=== PATIENT | male | born 1955 | race Caucasian/White ===

== ENCOUNTER 2017-05-26 09:46 | Inpatient (IN) | payer OTHER, MEDICARE ==
[~2017-05-26] VITALS: Ht 182.9 cm; Wt 94.5 kg
[2017-05-26] VITALS (7 sets, daily range): BP systolic 111–150; BP diastolic 66–94; PULSE 69–86; RESP 16–25; TEMP 97.5; O2SAT 94–98
[~2017-05-26 09:46] MED LIST: ASPI81 PO; CARV12.5 PO; CLOP75TA PO; ISOS30 PO; LISI-363 PO; PRAV80 PO; ST J300C PO
--- NOTE | 2017-05-26 10:14 | PD ---
HPI Chief Complaint: Chest Pain Time Seen by Provider: 10:00 Travel History International Travel<30 days: No Contact w/Intl Traveler<30days: No Traveled to known affect area: No History of Present Illness HPI 61-year-old male history coronary artery disease, hyperlipidemia, strong family cardiac history, presents here with complaints of chest pain intermittent times one week. Patient reports that comes and goes. He reports does a heavy pressure like. He states it is a 6 out of 10 when it's worse. It lasts roughly 5 minutes. He states he's taken 3 nitroglycerin that have resolved the pain. He was seen by Dr. Baker today and sent over here for admission for a cardiac catheter. [facility] Past Medical History Arthritis: Yes (Fingers) Asthma: No Blood Disorders: No Anxiety: Yes Depression: Yes Heart Rhythm Problems: No Cancer: No Cardiac Catheterization: Yes Cardiovascular Problems: Yes (htn, mi, stents) High Cholesterol: Yes Chest Pain: Yes Congestive Heart Failure: Yes (2009) COPD: No Cerebrovascular Accident: Yes Diabetes: Yes (metformin) Endocrine: No Gastrointestinal Disorders: No GERD: No Genitourinary: No Headaches: Yes (Rt side of head constantly) Hiatal Hernia: No Hypertension: Yes Immune Disorder: No Musculoskeletal: Yes Neurologic: No Psychiatric: Yes Reproductive: No Respiratory: Yes Migraines: No Myocardial Infarction: Yes (X 2) Seizures: No Sleep Apnea: No Ulcer: No Past Surgical History Abdominal Surgery: No Body Medical Devices: STENTS TO CORONARY ART. Cardiac Surgery: Yes ( Stent placement) Ear Surgery: No Endocrine Surgery: No Eye Surgery: No Genitourinary Surgery: No Gynecologic Surgery: No Oral Surgery: No Thoracic Surgery: No Other Surgery: Yes Social History Alcohol Use: No Tobacco Use: No Substance Use: No Allergies-Medications (Allergen,Severity, Reaction): Coded Allergies: No Known Allergies (Unverified , 05/26/17) Reported Meds & Prescriptions Reported Meds & Active Scripts Active Reported Gabapentin 100 Mg Cap 200 Mg PO DAILY Invokana (Canagliflozin) 100 Mg Tab 100 Mg PO DAILY Take before 1st meal of day. Metformin (Metformin HCl) 1,000 Mg Tab 1,000 Mg PO DAILY With a meal Pravastatin 80 Mg Tab 80 Mg PO DAILY Coreg (Carvedilol) 12.5 Mg Tab 12.5 Mg PO BID Aspirin 81 Mg Chew 81 Mg CHEW DAILY Review of Systems Except as stated in HPI: all other systems reviewed are Neg General / Constitutional: No: Fever, Chills HENT: No: Headaches, Neck Pain Cardiovascular: Positive: Chest Pain or Discomfort, No: Palpitations, Irregular Rhythm Respiratory: Positive: Shortness of Breath, No: Cough Gastrointestinal: Positive: Nausea, No: Vomiting, Abdominal Pain Musculoskeletal: No: Weakness, Pain Neurologic: No: Weakness, Headache Physical Exam Narrative GENERAL: Well-developed well-nourished male in no acute respiratory distress. SKIN: Focused skin assessment warm/dry. HEAD: Atraumatic. Normocephalic. EYES: No scleral icterus. No injection or drainage. ENT: No nasal bleeding or discharge. Mucous membranes pink and moist. NECK: Trachea midline. No JVD. Supple. CARDIOVASCULAR: Regular rate and rhythm. No murmur appreciated. RESPIRATORY: No accessory muscle use. Clear to auscultation. Breath sounds equal bilaterally. GASTROINTESTINAL: Abdomen soft, non-tender, nondistended. Hepatic and splenic margins not palpable. MUSCULOSKELETAL: No obvious deformities. No clubbing. No cyanosis. No edema. NEUROLOGICAL: Awake and alert. No obvious cranial nerve deficits. Motor grossly within normal limits. Normal speech. PSYCHIATRIC: Appropriate mood and affect; insight and judgment normal. Data Data Last Documented VS Vital Signs Date Time Temp Pulse Resp B/P Pulse Ox O2 Delivery O2 Flow Rate FiO2 05/26/17 10:16 70 23 118/71 125/71 05/26/17 10:08 97 Room Air 05/26/17 09:49 97.5 Orders Electrocardiogram (05/26/17 10:03) Basic Metabolic Panel (Bmp) (05/26/17 10:03) Ckmb (Isoenzyme) Profile (05/26/17 10:03) Complete Blood Count With Diff (05/26/17 10:03) Magnesium (Mg) (05/26/17 10:03) Prothrombin Time / Inr (Pt) (05/26/17 10:03) Act Partial Throm Time (Ptt) (05/26/17 10:03) Troponin I (05/26/17 10:03) Chest, Single Ap (05/26/17 10:03) Ecg Monitoring (05/26/17 10:03) Bilateral Bp Monitoring (05/26/17 10:03) Iv Access Insert/Monitor (05/26/17 10:03) Oximetry (05/26/17 10:03) Oxygen Administration (05/26/17 10:03) Sodium Chloride 0.9% Flush (Ns Flush) (05/26/17 10:15) Admit To Inpatient (05/26/17 ) Vital Signs (Adult) Q4H (05/26/17 13:20) Activity Oob With Assistance (05/26/17 13:20) Tie Bucker / Telemetry .CONTINUOUS (05/26/17 13:20) Diet Npo (05/26/17 Lunch) Sodium Chlor 0.9% 1000 Ml Inj (Ns 1000 M (05/26/17 13:20) Sodium Chloride 0.9% Flush (Ns Flush) (05/26/17 13:30) Sodium Chloride 0.9% Flush (Ns Flush) (05/26/17 21:00) Ondansetron Inj (Zofran Inj) (05/26/17 13:30) Basic Metabolic Panel (Bmp) (05/27/17 06:00) Complete Blood Count With Diff (05/27/17 06:00) Troponin I (05/26/17 13:20) Troponin I (05/26/17 19:20) Electrocardiogram (05/26/17 13:20) Electrocardiogram (05/26/17 19:20) Enoxaparin Inj (Lovenox Inj) (05/26/17 13:30) Morphine Inj (Morphine Inj) (05/26/17 13:30) Morphine Inj (Morphine Inj) (05/26/17 13:30) Naloxone Inj (Narcan Inj) (05/26/17 13:30) Docusate Sodium-Senna (Grecia-Colace) (05/26/17 21:00) Magnesium Hydroxide Liq (Milk Of Magnesi (05/26/17 13:30) Sennosides (Senokot) (05/26/17 13:30) Bisacodyl Supp (Dulcolax Supp) (05/26/17 13:30) Lactulose Liq (Lactulose Liq) (05/26/17 13:30) Inpatient Certification (05/26/17 ) Labs Laboratory Tests Test 05/26/17 10:25 White Blood Count 10.2 TH/MM3 Red Blood Count 5.26 MIL/MM3 Hemoglobin 16.1 GM/DL Hematocrit 45.9 % Mean Corpuscular Volume 87.2 FL Mean Corpuscular Hemoglobin 30.6 PG Mean Corpuscular Hemoglobin 35.0 % Concent Red Cell Distribution Width 12.6 % Platelet Count 247 TH/MM3 Mean Platelet Volume 9.2 FL Neutrophils (%) (Auto) 64.0 % Lymphocytes (%) (Auto) 26.9 % Monocytes (%) (Auto) 6.7 % Eosinophils (%) (Auto) 1.4 % Basophils (%) (Auto) 1.0 % Neutrophils # (Auto) 6.5 TH/MM3 Lymphocytes # (Auto) 2.8 TH/MM3 Monocytes # (Auto) 0.7 TH/MM3 Eosinophils # (Auto) 0.1 TH/MM3 Basophils # (Auto) 0.1 TH/MM3 CBC Comment DIFF FINAL Differential Comment Prothrombin Time 10.7 SEC Prothromb Time International 1.0 RATIO Ratio Activated Partial 24.8 SEC Thromboplast Time Sodium Level 139 MEQ/L Potassium Level 4.2 MEQ/L Chloride Level 104 MEQ/L Carbon Dioxide Level 28.1 MEQ/L Anion Gap 7 MEQ/L Blood Urea Nitrogen 14 MG/DL Creatinine 0.91 MG/DL Estimat Glomerular Filtration 85 ML/MIN Rate Random Glucose 115 MG/DL Calcium Level 9.2 MG/DL Magnesium Level 2.3 MG/DL Total Creatine Kinase 54 U/L Troponin I 0.02 NG/ML MDM Medical Decision Making Medical Screen Exam Complete: Yes Emergency Medical Condition: Yes Differential Diagnosis Unstable angina versus musculoskeletal versus pneumonia Narrative Course This is a 61-year-old male presents 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 The patient presents with what sounds like a very good unstable angina history. The patient's had a week of intermittent chest pain relieved with nitroglycerin. The patient has been given a full aspirin and has had nitroglycerin paste placed here in the emergency department. He'll be admitted to the hospitalist service with consults to Dr. Baker. He'll be nothing by mouth until we find out when [facility] will [facility]. Diagnosis Primary Impression: Unstable angina Additional Impressions: Hypertension Hyperlipidemia Admitting Information Admitting Physician Requests: Admit Zachary Lloyd MD May 26, 2017 10:14
[2017-05-26] MEDS ORDERED: SODIUM CHLORIDE 0.9% FLUSH 10 ML FLUSH IVF PRN (10:15)
[2017-05-26] MEDS ORDERED: CANA100T PO (10:24)
[2017-05-26] MEDS ORDERED: CARV12.5 PO (10:24)
[2017-05-26] MEDS ORDERED: ASPI81CH CHEW (10:24)
[2017-05-26] MEDS ORDERED: GABA100C4 PO (10:24)
[2017-05-26] MEDS ORDERED: PRAV80TA2 PO (10:24)
[2017-05-26] MEDS ORDERED: METF1000 PO (10:24)
[2017-05-26 10:43] LABS: AUTOMATED NEUTROPHIL # 6.5 TH/MM3 (1.8-7.7); BASOPHIL # 0.1 TH/MM3 (0-0.2); EOSINOPHIL # 0.1 TH/MM3 (0-0.4); EOSINOPHIL % 1.4 % (0.0-4.0); HEMATOCRIT 45.9 % (39.0-51.0); HEMO FLAGS DIFF FINAL; LYMPH % 26.9 % (9.0-44.0); LYMPHOCYTE # 2.8 TH/MM3 (1.0-4.8); MEAN CELL VOLUME 87.2 FL (80.0-100.0); MEAN CORPUSCULAR HEMOGLOBIN 30.6 PG (27.0-34.0); MONO % 6.7 % (0.0-8.0); PLATELET COUNT 247 TH/MM3 (150-450); RED BLOOD COUNT 5.26 MIL/MM3 (4.50-5.90); RED CELL DISTRIBUTION WIDTH 12.6 % (11.6-17.2); WHITE BLOOD COUNT 10.2 TH/MM3 (4.0-11.0)
[2017-05-26 10:51] LABS: PROTHROMBIN TIME - PATIENT 10.7 SEC (9.8-11.6)
[2017-05-26 10:55] LABS: APTT (PATIENT) 24.8 SEC (24.3-30.1)
[2017-05-26 11:06] LABS: BICARBONATE 28.1 MEQ/L (21.0-32.0); MAGNESIUM 2.3 MG/DL (1.5-2.5); POTASSIUM 4.2 MEQ/L (3.5-5.1)
--- NOTE | 2017-05-26 11:32 | RADRPT ---
EXAM DATE/TIME: 05/26/2017 10:10 [facility] COMPARISON: CHEST SINGLE AP, December 10, 2013, 14:31. INDICATIONS : Chest pain for one week. MEDICAL HISTORY : Hypertension. Diabetes mellitus type II. SURGICAL HISTORY : None. ENCOUNTER: Initial ACUITY: 1 week PAIN SCORE: 8/10 LOCATION: Bilateral chest FINDINGS: A single view of the chest demonstrates the lungs to be symmetrically aerated without evidence of mas s, infiltrate or effusion. The cardiomediastinal contours are unremarkable. Osseous structures are intact. CONCLUSION: No acute disease. Sidney Morales MD FACR on May 26, 2017 at 11:30 Board Certified Radiologist. This report was verified electronically.
[2017-05-26] MEDS ORDERED: SODIUM CHLORIDE 0.9% FLUSH 10 ML FLUSH IV FLUSH PRN (13:30)
[2017-05-26] MEDS ORDERED: ASPIRIN 81 MG CHEW TAB CHEW ONE (13:30)
[2017-05-26] MEDS ORDERED: MAGNESIUM HYDROXIDE SUSP 30 ML CUP PO PRN (13:30)
[2017-05-26] MEDS ORDERED: SENNOSIDES 8.6 MG TAB PO PRN (13:30)
[2017-05-26] MEDS ORDERED: LACTULOSE SYRUP 20 GM/30 ML CUP PO PRN (13:30)
[2017-05-26] MEDS ORDERED: NALOXONE HCL 0.4 MG/ML AMP IV PRN (13:30)
[2017-05-26] MEDS ORDERED: BISACODYL 10 MG SUPP RECTAL PRN (13:30)
[2017-05-26] MEDS ORDERED: MORPHINE SULFATE 4 MG/ML INJ IV PRN ×2 (13:30)
[2017-05-26] MEDS ORDERED: ONDANSETRON HCL 4 MG/2 ML VIAL IVP PRN (13:30)
[2017-05-26] MEDS ORDERED: NITROGLYCERIN 2% OINT 1 GM PACKET TOPICAL ONE (13:30)
[2017-05-26] MEDS: SODIUM CHLOR 0.9% 1000 ML INJ 1,000 ML IV SCH ×2 (13:48→23:55)
[2017-05-26] MEDS ORDERED: ENOXAPARIN SODIUM 40 MG/0.4 ML SYRINGE SQ SCH (14:00)
[2017-05-26] MEDS: INSULIN ASPART SUPPLEMENTAL SCALE SQ SCH ×2 (16:00→21:00)
[2017-05-26] MEDS ORDERED: DEXTROSE 50% IN WATER 50 ML VIAL(D50) IV PRN (16:00)
[2017-05-26] MEDS ORDERED: GLUCAGON 1 MG/ML VIAL OTHER PRN (16:00)
--- NOTE | 2017-05-26 16:00 | HHI.HP ---
[facility] Kevin Pina Admission Diagnosis unstable angina, hypertension, hyperlipidemia Diagnoses: Travel History International Travel<30 Days: No Contact w/Intl Traveler <30 Da: No Traveled to Known Affected Are: No History of Present Illness Mr. Negrete is a 61-year-old male. She has a history of coronary artery disease with 2 myocardial infarctions and 3-4 stents in his past. For the past 2 weeks he's been having unstable angina with an increase in frequency and intensity. Episodes are brought on by activity. At his baseline he has angina intermittently but again the frequency and intensity have increased lately. He' s been treating this at home and seeking outpatient medical advice. He was unable to visit with his primary care physician last week so he saw Dr. Baker today and was recommended to come to the hospital. Plan is for cardiac catheter. No active chest pain when seen, resting in the ER. His first troponin is within normal limits. Review of Systems Constitutional: DENIES: Diaphoretic episodes, Fatigue, Fever, Weight gain, Weight loss, Chills Eyes: DENIES: Blurred vision, Diplopia Ears, nose, mouth, throat: DENIES: Tinnitus, Hearing loss, Vertigo Respiratory: DENIES: Cough, Wheezing, Sputum production Cardiovascular: COMPLAINS OF: Chest pain, DENIES: Palpitations, Syncope Gastrointestinal: DENIES: Abdominal pain, Black stools, Bloody stools, Constipation Musculoskeletal: DENIES: Joint pain, Muscle aches, Stiffness Integumentary: DENIES: Abnormal pigmentation Hematologic/lymphatic: DENIES: Bruising Immunologic/allergic: DENIES: Eczema Neurologic: DENIES: Abnormal gait Psychiatric: DENIES: Anxiety, Confusion Past Family Social History Past Medical History [place] Coronary artery disease Hyperlipidemia Gen. anxiety disorder Depression Hypertension History of CVA Diabetes mellitus type 2 Headaches Past Surgical History History of heart catheter Reported Medications Reported Meds & Active Scripts Active Reported Gabapentin 100 Mg Cap 200 Mg PO DAILY Invokana (Canagliflozin) 100 Mg Tab 100 Mg PO DAILY Take before 1st meal of day. Metformin (Metformin HCl) 1,000 Mg Tab 1,000 Mg PO DAILY With a meal Pravastatin 80 Mg Tab 80 Mg PO DAILY Coreg (Carvedilol) 12.5 Mg Tab 12.5 Mg PO BID Aspirin 81 Mg Chew 81 Mg CHEW DAILY Allergies: Coded Allergies: No Known Allergies (Unverified , 05/26/17) Active Ordered Medications Administered Medications Medications (Trade) Dose Ordered Sig/Sheryl Route PRN Reason Start Time Stop Time Status Last Admin Dose Admin Sodium Chloride (NS 1000 ml Inj) 1,000 ml @ 100 mls/hr Q10H IV 05/26/17 14:00 05/26/17 13:48 Enoxaparin Sodium (Lovenox Inj) 40 mg Q24H SQ 05/26/17 14:00 05/26/17 14:53 Family History His father, grandfather, uncle had coronary artery disease. His father of [place]. His mother of cancer. Social History No alcohol abuse Known drug abuse He was a smoker and quit in 2002. Physical Exam Vital Signs Vital Signs Date Time Temp Pulse Resp B/P Pulse Ox O2 Delivery O2 Flow Rate FiO2 05/26/17 13:48 69 25 118/69 97 Room Air 05/26/17 10:16 70 23 118/71 125/71 05/26/17 10:08 71 23 97 Room Air 05/26/17 10:07 72 23 118/71 97 Room Air 05/26/17 10:07 97 Room Air 05/26/17 09:49 97.5 72 18 145/78 97 Room Air Physical Exam GENERAL: NAD, A&Ox3 HEAD: Normocephalic. NECK: Supple, trachea midline. No lymphadenopathy. EYES: No scleral icterus. No injection or drainage. CARDIOVASCULAR: Regular rate and rhythm without murmurs, gallops, or rubs. RESPIRATORY: Breath sounds equal bilaterally. No accessory muscle use. GASTROINTESTINAL: Abdomen soft, non-tender, nondistended. MUSCULOSKELETAL: No cyanosis, or edema. SKIN: Warm and dry. NEURO: No focal neurological deficitis. Laboratory Laboratory Tests Test 05/26/17 10:25 White Blood Count 10.2 Red Blood Count 5.26 Hemoglobin 16.1 Hematocrit 45.9 Mean Corpuscular Volume 87.2 Mean Corpuscular Hemoglobin 30.6 Mean Corpuscular Hemoglobin 35.0 Concent Red Cell Distribution Width 12.6 Platelet Count 247 Mean Platelet Volume 9.2 Neutrophils (%) (Auto) 64.0 Lymphocytes (%) (Auto) 26.9 Monocytes (%) (Auto) 6.7 Eosinophils (%) (Auto) 1.4 Basophils (%) (Auto) 1.0 Neutrophils # (Auto) 6.5 Lymphocytes # (Auto) 2.8 Monocytes # (Auto) 0.7 Eosinophils # (Auto) 0.1 Basophils # (Auto) 0.1 CBC Comment DIFF FINAL Differential Comment Prothrombin Time 10.7 Prothromb Time International 1.0 Ratio Activated Partial 24.8 Thromboplast Time Sodium Level 139 Potassium Level 4.2 Chloride Level 104 Carbon Dioxide Level 28.1 Anion Gap 7 Blood Urea Nitrogen 14 Creatinine 0.91 Estimat Glomerular Filtration 85 Rate Random Glucose 115 Calcium Level 9.2 Magnesium Level 2.3 Total Creatine Kinase 54 Troponin I 0.02 Result Diagram: 05/26/17 1025 05/26/17 1025 Imaging Last Impressions Chest X-Ray 05/26/17 1003 Signed Impressions: Service Date/Time: Friday, May 26, 2017 10:10 - CONCLUSION: No acute disease. Sidney Morales MD FACR Assessment and Plan Problem List: (1) Hypertension ICD Code: I10 Status: Acute (2) Hyperlipidemia ICD Code: E78.5 Status: Acute (3) Unstable angina ICD Code: I20.0 Status: Acute (4) Disorder of coronary artery ICD Code: 447.9 Status: Chronic (5) Benign hypertension ICD Code: 401.1 Status: Chronic (6) Chest pain ICD Code: R07.9 Status: Acute Assessment and Plan Assessment and plan 61-year-old male with known coronary artery disease admitted with unstable angina. Unstable angina Coronary artery disease [place] History of coronary stents Plan for heart catheter this evening Nothing by mouth Cardiology consulted Evaluate for ACS Follow cardiac enzymes Aspirin daily When necessary oxygen When necessary morphine for pain. When necessary nitroglycerin Follow on telemetry Hyperlipidemia Continue statin Fasting lipid profile in a.m. Diabetes mellitus type 2 Follow blood sugars Insulin sliding scale Diabetic diet once off nothing by mouth Gen. anxiety disorder Depression No change to baseline treatments No active anxiety when seen Follow clinically Hypertension Follow blood pressures Continue baseline treatments History of CVA Headaches Follow clinically DVT prophylaxis Lovenox Physician Certification 2 Midnight Certification Type: Admission for Inpatient Services Order for Inpatient Services The services are ordered in accordance with Medicare regulations or non- Medicare payer requirements, as applicable. In the case of services not specified as inpatient-only, they are appropriately provided as inpatient services in accordance with the 2-midnight benchmark. Estimated LOS (days): 2 days is the estimated time the patient will need to remain in the hospital, assuming treatment plan goals are met and no additional complications. Post-Hospital Plan: Home Brandon Potter MD May 26, 2017 16:00
--- NOTE | 2017-05-26 16:38 | EKG ---
Date Performed: 05/26/2017 Time Performed: 10:09:11 PTAGE: 61 years EKG: Sinus rhythm NORMAL ECG PREVIOUS TRACING : 12/10/2013 20.27 Since previous tracing, no significant change noted DOCTOR: Domenico Christopher Interpretating Date/Time 05/26/2017 16:37:59
[2017-05-26] MEDS ORDERED: IOHEXOL 350 MG/ML 50 ML BTL (for Cath Lab) OTHER ONE (17:00)
[2017-05-26] MEDS ORDERED: IOHEXOL 350 MG/ML 100 ML BTL (for Cath Lab) OTHER ONE (17:00)
[2017-05-26] MEDS ORDERED: HEPARIN-NS/PF INJ 500 ML ONE (17:08)
[2017-05-26] MEDS ORDERED: BIVALIRUDIN 250 MG VIAL ONE (17:34)
[2017-05-26] MEDS ORDERED: TICAGRELOR 90 MG TAB PO ONE (18:13)
--- NOTE | 2017-05-26 18:36 | CATHPROC ---
[employer] HIS Report Study Information Study Number Admission Scheduled Start Study Start [id number] May 26 2017 1:23PM 05/26/2017 May 26 2017 4:44PM [place] [facility] Cardiac Catheterization Admit Source Facility Department Emergency department [facility] - Logistics Account Manager Physician and Clinical Staff Initial MD Baker, [facility] Platinumsmith Gilberto Grove,RN Recorder Keven Huber,RT(R) Scrub Jamila Vicente,CIVIL GEOTECHNICAL ENGINEER TECH2 Procedures Performed Procedure Location (Site) Vessel Name Coronary Angiograms LCA Left Coronary Drug Eluting Inflatio CIRC Prox CIRC LV Gram-hand inj. LV LV Ventricle PTCA CIRC Prox CIRC Wire insertion Fem Art (right) Femoral Art Equipment Time Group Home Paraprofessional Description Size Mfg Part Number Used/Scraped WIRE, BALANCE MIDDLEWEIGHT [id number] 17:36 [employer] 190CM Used 190CM ([facility]) *[id number] WIRE, WHISPER W/HYDROCOAT [id number] 17:52 [employer] 190CM Used 190CM *[id number] TRANSDUCER, TRUWAVE [id number] 16:46 NARANJO EARL * Used W/STOCKCOCK *[id number] 18:00 BOSTON SCI[employer] BALLOON, 1.5 8MM EMERGE MR 1.5 8MM Used *[id number] 538-476 *[id number] 538-420 *[id number] 538-422 *[id number] 538-453S *[phone] *[id number] 18:16 DAIG/ST. YASMINE MEDICAL ANGIOSEAL, FR6 VIP FR 6 Used *[id number] 16:46 MEDLINE INDUSTRIES PACK, CCL CUSTOM * Used *[id number] [id number] 16:46 MEDLINE PACER PEN, SKIN DUAL W/ RULER * Used *[id number] STENT, 2.75 14 RESOLUTE [id number] 18:07 MEDTRONIC 2.75 14 Used INTEGRITY RX *[id number] 18:04 [employer] Universe MEDICAL 30 ELIECER INDEFLATOR Used *[id number] 16:46 [employer] MEDICAL SHEATH, FR4.5 PRELUDE 11CM FR 4.5 Used [id number] 17:32 [employer] MEDICAL SHEATH, FR6.5 PRELUDE 11CM FR 6.5 038ACT Used *[id number] 16:46 [employer] MEDICAL WIRE, 3MMJ .035 180CM 180CM Used *[id number] 16:46 NAMIC CONTRAST CONTROLLER, SPIKE * Used *[id number] 16:46 NAMIC MANIFOLD, 4 PORT * Used *[id number] 16:46 NYCOMED OMNIPAQUE, 350 MG, 150ML 150ML [id number] Used [id number] 16:46 Geostellar MEDICAL BLANKET,WARM AIR CCL * Used *[id number] 16:46 Geostellar MEDICAL BLANKET,WARM AIR CCL * Used *[id number] Equipment Model, Serial, Lot Number and Expiration Data Description Model Number Serial Number Lot Number Expiration Date SHEATH, FR6.5 PRELUDE 11CM [id number] 03-19-2020 STENT, 2.75 14 RESOLUTE [id number] 09-13-2017 INTEGRITY RX History: Risk Factors Hypertension Yes History: Symptoms/Diagnosis Selection Items Angina-unstable History: Stress Tests Stress or Imaging Studies Performed No Labs Hgb (g/dl) Hct (%) WBC (l/cumm) Platelets (thousands) 11.60-17.00 35.00-51.00 4.00-11.00 150.00-450.00 16.1 45.9 10.2 247 Glucose (mg/dl) BUN (mg/dl) Creatinine (mg/dl) BUN:Creatinine (1:x) 74.00-106.00 7.00-18.00 0.50-1.30 10.00-20.00 115 14 0.9 15.6 Na (meq/l) K (meq/l) 136.00-145.00 3.50-5.10 139 4.2 INR (PTT:PT) 0.90-1.10 1 Troponin I (ng/ml) CPK (u/l) CPK-MB (ng/ML) 0.02-0.05 26.00-308.00 0.50-3.60 0.02 54 Not Drawn Medication Medication Total Dose (Bolus/Oral) Medication Total Dosage/Unit 1% XYLOCAINE 20 mL ANGIOMAX BOLUS 13.5 mL BRILLINTA 180 mg FENTANYL 100 mcg Medications (Bolus/Oral) Medication Time Given Dosage/Unit Administered By Reason FENTANYL 05/26/2017 5:15:35 PM 50 mcg Gilberto Grove 50 mcg FENTANYL given in lab by Gilberto Grove RN in Left Antecubital via Peripheral IV. Ordered by Tracy Baker. 1% XYLOCAINE 05/26/2017 5:16:02 PM 20 mL Tracy Baker 20 mL 1% XYLOCAINE given in lab by Tracy Baker in Right Groin via Subcutaneous. Ordered by Tracy Brand. ANGIOMAX BOLUS 05/26/2017 5:36:50 PM 13.5 mL Gilberto Grove 13.5 mL ANGIOMAX BOLUS given in lab by Gilberto Grove RN in Left Antecubital via Peripheral IV. Orde red by Tracy Baker. BRILLINTA 05/26/2017 6:19:26 PM 180 mg Gilberto Grove 180 mg BRILLINTA given in lab by Gilberto Grove RN in Per mouth via Oral. Ordered by Gerard Baker. FENTANYL 05/26/2017 6:20:32 PM 50 mcg Gilberto Grove 50 mcg FENTANYL given in lab by Gilberto Grove RN in Left Antecubital via Peripheral IV. Ordered by Tracy Baker. Medication (Drip) Medication Time Given Dosage/Unit Concentration/Unit Diluent (ml) Solution ANGIOMAX DRIP 05/26/2017 5:38:29 PM 1.75 mg/kg/hr 250 mg 50 NaCl .9 1.75 mg/kg/hr ANGIOMAX DRIP given in lab by Gilberto Grove RN in Left Antecubital via Peripheral IV. Pump/Drip Flow = 31.5 ml/hr using NaCl .9 with a concentration of 250 mg in 50 ml. Ordered by Tracy Baker. Reason: As per physicians verbal or milka. IV Solutions 05/26/2017 5:37:18 PM 0 mL (IV) 500 NaCl .9 IV Solutions given in lab by Gilberto Grove RN in Left Antecubital via Peripheral IV. Pump/Drip Flow = 100 ml/hr using NaCl .9. Ordered by Tracy Baekr. Reason: As per physicians verbal order. start for a 500ml Saline Bolus Initial Case Assessment Cardiovascular HR Rhythm NIBP Chest Pain 76 sr 143/84 0 Edema Present Skin color Skin None Normal Warm Dry Circulatory - Right Pulses Posterior Tibial Femoral 3 3 Scale (0,1,2,3,4,d) Circulatory - Left Pulses Posterior Tibial Femoral 3 3 Scale (0,1,2,3,4,d) Neurological State Oriented to time-place- Alert Moves all extremities person Respiration - General Respiration Rate SpO2 (%) O2 (lpm) (B/min) 15 97 0 Final Case Assessment Cardiovascular HR Rhythm NIBP Chest Pain 70 sr 135/76 0 Edema Present Skin color Skin None Normal Warm Dry Circulatory - Right Pulses Posterior Tibial Femoral 3 3 Scale (0,1,2,3,4,d) Circulatory - Left Pulses Posterior Tibial Femoral 3 3 Scale (0,1,2,3,4,d) Neurological State Oriented to time-place- Alert Moves all extremities person Respiration - General Respiration Rate SpO2 (%) O2 (lpm) (B/min) 18 98 0 Chronological Log Time Study Chronological Log 17:00:29 Patient arrived via Bed. 17:00:30 Patient Name, D.O.B, / Armband Verified By R.N. 17:00:31 Consent signed by the physician and the patient and verified by the Logistics Account Manager staff. 17:00:34 Pre-op and post- op instructions given; patient acknowledges understanding of instructions . 17:01:34 Patient has been NPO for Less than 6Hrs. 17:01:39 Skin Breakdown-none present per patient. 17:01:40 Patient Warmer Placed on the Table. 17:02:15 A # 20 IV was noted in the Antecubital (left). Grade = 0 17:04:23 History and physical on the chart or being dictated. Assessment: Initial Case, HR=76 BPM, Rhythm=sr, SKQP=629/84 mmhg, Chest Pain=0, Edema=None, Co lily=Normal, Skin = Warm, Dry Right Pulses: Post Tib=3, Femoral=3 17:04:25 Left Pulses: Post Tib=3, Femoral=3 Neurological: State=Alert, Ox3, BLANKENSHIP Respiration: Resp=15 B/min, SpO2=97 %, O2=0 lpm 17:04:38 Right and left groin prepped with 2% chlorhexidine, and with a 3 min. waiting time. 17:05:06 MD arrived. Vitals capture started with the following parameters, Patient=Adult, Interval=5 min, Initial P cruwbyb=316 mmHg, 17:06:11 Deflation Rate=5 mmHg, Cuff placed on Right Arm 17:06:46 HR=76 bpm, HZRR=422/84 mmhg, SpO2=98 %, Resp=15 B/min 17:11:49 HR=74 bpm, JSDR=025/86 mmhg, SpO2=96.0 %, Resp=17 B/min, Olivares=2 17:12:55 Reference ECG taken 17:13:15 Pressure channel 1 zeroed. Time Out. Correct patient, correct procedure,correct physician, ,power injector not loaded with contrast with surgical 17:14:59 team present. Time Out Concurred by MD, individual staff and TRAINING ENGINEER in procedure. Not loaded at t his time. 17:15:27 Presedation re-assessment performed by Logistics Account Manager RN. 17:15:28 Case Start 17:15:30 Verbal Stimulation=2 Physical Stimulation=2 Airway=2 Respiration=2 TOTAL=8. (0=absent, 1=li mited, 2=present) 50 mcg FENTANYL given in lab by Gilberto Grove, RN in Left Antecubital via Peripheral IV. Order ed by Samuel, 17:15:35 Tracy. 20 mL 1% XYLOCAINE given in lab by Tracy Baker in Right Groin via Subcutaneous. Ordered b thom Baker, 17:16:02 Tracy. 17:17:09 HR=75 bpm, FNSP=208/86 mmhg, SpO2=96.0 %, Resp=14 B/min, Olivares=2 17:17:30 Access site was Right Femoral Artery. 17:17:36 A SHEATH, FR4.5 PRELUDE 11CM FR 4.5 was advanced into the Fem Art (right) using the Percuta neous technique. Recorded Pressure: FA, HR=78, Condition=Condition 1 17:17:57 (Femoral Artery) FA 144/82/107 17:18:35 An injection in the Fem Art (right) was made through the SHEATH, FR4.5 PRELUDE 11CM FR 4.5. A JL 4.0 INFINITI CATHETER FR 4 was advanced over a wire. OMNIPAQUE, 350 MG, 150ML 150ML was us ed for 17:18:50 injections. Recorded Pressure: Ao, HR=75, Condition=Condition 1 17:20:22 (Aorta) Ao 129/82/102 17:21:48 HR=74 bpm, MRPO=059/87 mmhg, SpO2=95.0 %, Resp=18 B/min, Olivares=2 After removing the current catheter a JL 5.0 INFINITI CATHETER FR 4 was advanced over a WIRE, 3 MMJ .035 180CM 17:22:13 180CM. 17:22:49 The LCA was injected and visualized at various angles. OMNIPAQUE, 350 MG, 150ML 150ML used . 17:26:49 HR=71 bpm, ZARQ=114/75 mmhg, SpO2=96.0 %, Resp=15 B/min, Olivares=2 After removing the current catheter a 3DRC INFINITI CATHETER FR 4 was advanced over a WIRE, 3MM J .035 180CM 17:27:28 180CM. 17:31:48 HR=73 bpm, BSHS=090/73 mmhg, SpO2=97.0 %, Resp=12 B/min, Olivares=2 17:33:58 Catheter was removed A SHEATH, FR6.5 PRELUDE 11CM FR 6.5 was exchanged in the Fem Art (right). This was necessary in order to 17:34:15 accomodate a larger catheter. A XB 3.5 GUIDE CATHETER FR 6 was advanced over a wire. OMNIPAQUE, 350 MG, 150ML 150ML was used for 17:34:35 injections. 17:36:47 HR=68 bpm, MIJD=398/65 mmhg, SpO2=96.0 %, Resp=12 B/min, Olivares=2 13.5 mL ANGIOMAX BOLUS given in lab by Gilberto Grove RN in Left Antecubital via Peripheral IV . Ordered by 17:36:50 Tracy Baker. IV Solutions given in lab by Gilberto Grove RN in Left Antecubital via Peripheral IV. Pump/Dri p Flow = 100 ml/hr using 17:37:18 NaCl .9. Ordered by Tracy Baker. Reason: As per physicians verbal order. start for a 500m l Saline Bolus 1.75 mg/kg/hr ANGIOMAX DRIP given in lab by Gilberto Grove RN in Left Antecubital via Peripher al IV. Pump/Drip Flow 17:38:29 = 31.5 ml/hr using NaCl .9 with a concentration of 250 mg in 50 ml. Ordered by Tracy Baker. Reason: As per physicians verbal order. 17:41:48 HR=68 bpm, JLMI=917/74 mmhg, PoN3=227.0 %, Resp=7 B/min, Olivares=2 17:42:58 Activated Clotting Time Drawn 17:43:54 A WIRE, BALANCE MIDDLEWEIGHT 190CM (TRACY) 190CM was inserted via Fem Art (right). 17:46:43 HR=72 bpm, BUQB=273/75 mmhg, SpO2=96.0 %, Resp=12 B/min, Olivares=2 17:48:34 ACT (Normal Range 90-180) = 290 17:49:30 Wire removed for reshaping. 17:51:46 HR=69 bpm, LHNJ=004/81 mmhg, SpO2=98.0 %, Resp=13 B/min, Olivares=2 17:52:41 Wire removed 17:52:43 A WIRE, WHISPER W/HYDROCOAT 190CM 190CM was inserted via Fem Art (right). 17:56:51 HR=70 bpm, IXDY=315/80 mmhg, SpO2=96.0 %, Resp=14 B/min, Olivares=2 A BALLOON, 1.5 8MM EMERGE MR 1.5 8MM was inserted over WIRE, WHISPER W/HYDROCOAT 190CM 190CM vi a the 18:00:04 CIRC Prox. 18:01:48 HR=75 bpm, GUQS=473/82 mmhg, SpO2=97.0 %, Resp=14 B/min, Olivares=2 18:02:54 Interventional wire has crossed the lesion A BALLOON, 1.5 8MM EMERGE MR 1.5 8MM over a WIRE, WHISPER W/HYDROCOAT 190CM 190CM in the CIRC P sade 18:04:18 was inflated using a 30 ELIECER INDEFLATOR at 10 eliecer for 30 sec. 18:05:24 Balloon Removed. 18:06:53 HR=76 bpm, CERO=587/73 mmhg, SpO2=98.0 %, Resp=15 B/min, Olivares=2 A STENT, 2.75 14 RESOLUTE INTEGRITY RX 2.75 14 was advanced through a XB 3.5 GUIDE CATHETER FR 6 over a 18:07:21 WIRE, WHISPER W/HYDROCOAT 190CM 190CM. A STENT, 2.75 14 RESOLUTE INTEGRITY RX 2.75 14 was deployed using a 30 ELIECER INDEFLATOR at 15 eliecer ospheres 18:07:37 for 25 seconds in the CIRC Prox. 18:10:59 Delivery device removed 18:11:50 HR=74 bpm, MEKO=814/78 mmhg, SpO2=97.0 %, Resp=14 B/min, Olivares=2 18:11:57 Wire removed After removing the current catheter a PIGTAIL ANG. INFINITI CATHETER FR 4 was advanced over a W MARSHALL, 3MMJ .035 18:12:29 180CM 180CM. Recorded Pressure: LV, HR=64, Condition=Condition 1 18:13:47 (Left Ventricle) LV 119/8/22 18:14:05 The LV was manually injected with 10 cc's and visualized. OMNIPAQUE, 350 MG, 150ML 150ML us ed. Recorded Pressure: LV, Ao, HR=74, Condition=Condition 1 18:14:17 (Left Ventricle) LV 121/13/22, (Aorta) Ao 127/72/95 18:14:33 Catheter was removed 18:16:10 ANGIOSEAL, FR6 VIP FR 6 placement in the Fem Art (right) 18:16:53 HR=70 bpm, DCOP=916/76 mmhg, SpO2=98.0 %, Resp=10 B/min, Olivares=2 Assessment: Final Case, HR=70 BPM, Rhythm=sr, YUXV=178/76 mmhg, Chest Pain=0, Edema=None, Color =Normal, Skin = Warm, Dry Right Pulses: Post Tib=3, Femoral=3 18:17:36 Left Pulses: Post Tib=3, Femoral=3 Neurological: State=Alert, Ox3, BLANKENSHIP Respiration: Resp=18 B/min, SpO2=98 %, O2=0 lpm 18:18:21 Case End 18:18:23 Sterile dressing applied to site 18:18:25 No case complications noted. 18:18:27 Cine recording checked. 18:18:29 Bedside Report will be given. 18:18:32 Implantable Device card placed in patient's chart. 18:19:26 180 mg BRILLINTA given in lab by Gilberto Grove, RN in Per mouth via Oral. Ordered by Beth. Arya 50 mcg FENTANYL given in lab by Gilberto Grove, RN in Left Antecubital via Peripheral IV. Order ed by Samuel 18:20:32 18:21:10 Catheter(s) removed without difficulty 18:21:53 Contrast Scanned 18:21:54 HR=75 bpm, TZLD=691/95 mmhg, PoJ4=518.0 %, Resp=20 B/min, Olivares=2 18:23:43 Vitals capture stopped. 18:33:16 Patient moved to [facility] End Study - Contrast Media Used In Study Contrast Total Opened (mL) Total Used (mL) Total Wasted (mL) Omnipaque 105 105 0 End Study - Maximum Contrast Load Max Contrast Load (mL) 500.0 End Study - Radiation Exposure Fluoro Time (minutes) 16.5 End Study - Patient Disposition Complications Transferred To Interventional Outcome No Telemetry Bed successful
[2017-05-26] MEDS ORDERED: ACETAMINOPHEN 325 MG TAB PO PRN (18:45)
[2017-05-26] MEDS ORDERED: MORPHINE SULFATE 4 MG/ML INJ IV PUSH PRN (18:45)
[2017-05-26] MEDS ORDERED: MISC INFORMATION XX ONE (18:45)
[2017-05-26] MEDS ORDERED: oxyCODONE/ACETAMINOPHEN 5 MG/325 MG TAB PO PRN (18:45)
[2017-05-26] MEDS ORDERED: ALPRAZolam 0.25 MG TAB PO ONE (19:30)
[2017-05-26] MEDS ORDERED: ALPRAZolam 0.25 MG TAB PO PRN ×2 (19:30→20:00)
[2017-05-26] MEDS ORDERED: ALUMINUM/MAGNESIUM/SIMETH 30 ML CUP PO PRN (20:00)
[2017-05-26] MEDS: SODIUM CHLORIDE 0.9% FLUSH 10 ML FLUSH IV FLUSH SCH (22:28)
[2017-05-26] MEDS: CARVEDILOL 12.5 MG TAB PO SCH (22:28)
[2017-05-26] MEDS: RANOLAZINE 500 MG EXTENDED RELEASE TAB PO SCH (22:28)
[2017-05-26] MEDS: DOCUSATE SODIUM 50 MG/SENNA 8.6 MG TAB PO SCH (22:28)
[2017-05-26] MEDS: oxyCODONE/ACETAMINOPHEN 10 MG/325 MG TAB PO PRN (22:41)
[2017-05-27] VITALS (8 sets, daily range): BP systolic 132–133; BP diastolic 77–83; PULSE 58–75; RESP 16; TEMP 97.5; O2SAT 97
[2017-05-27] MEDS: oxyCODONE/ACETAMINOPHEN 10 MG/325 MG TAB PO PRN (02:26)
[2017-05-27 06:42] LABS: AUTOMATED NEUTROPHIL # 6.8 TH/MM3 (1.8-7.7); BASOPHIL # 0.1 TH/MM3 (0-0.2); BASOPHIL % 0.6 % (0.0-2.0); EOSINOPHIL # 0.1 TH/MM3 (0-0.4); EOSINOPHIL % 0.9 % (0.0-4.0); HEMATOCRIT 42.4 % (39.0-51.0); HEMO FLAGS DIFF FINAL; LYMPH % 26.8 % (9.0-44.0); LYMPHOCYTE # 2.8 TH/MM3 (1.0-4.8); MEAN CELL VOLUME 87.8 FL (80.0-100.0); MEAN CORPUSCULAR HEMOGLOBIN 29.8 PG (27.0-34.0); MEAN CORPUSCULAR HGB CONC 33.9 % (32.0-36.0); MONO % 6.9 % (0.0-8.0); NEUT % 64.8 % (16.0-70.0); PLATELET COUNT 218 TH/MM3 (150-450); RED BLOOD COUNT 4.83 MIL/MM3 (4.50-5.90); RED CELL DISTRIBUTION WIDTH 12.5 % (11.6-17.2); WHITE BLOOD COUNT 10.5 TH/MM3 (4.0-11.0)
[2017-05-27] MEDS: INSULIN ASPART SUPPLEMENTAL SCALE SQ SCH (06:43)
[2017-05-27 07:23] LABS: BICARBONATE 28.6 MEQ/L (21.0-32.0); POTASSIUM 3.5 MEQ/L (3.5-5.1)
[2017-05-27 07:26] LABS: HDL CHOLESTEROL 27.3 MG/DL (40.0-60.0)
[2017-05-27] MEDS ORDERED: PILL SPLITTER OTHER PRN (07:30)
--- NOTE | 2017-05-27 07:39 | PD.CARD.PN ---
Subjective Subjective Remarks Pt without complaints this am...he reports twinge of CP last night Objective Medications Current Medications Medications (Trade) Dose Ordered Sig/Sheryl Route Start Time Stop Time Status Last Admin (NS 1000 ml Inj) 1,000 ml @ 100 mls/hr Q10H IV 05/26/17 14:00 05/26/17 23:55 (NS Flush) 2 ml UNSCH PRN IV FLUSH 05/26/17 13:30 (NS Flush) 2 ml BID IV FLUSH 05/26/17 21:00 05/26/17 22:28 (Zofran Inj) 4 mg Q6H PRN IVP 05/26/17 13:30 (Morphine Inj) 2 mg Q3H PRN IV 05/26/17 13:30 (Morphine Inj) 4 mg Q3H PRN IV 05/26/17 13:30 (Narcan Inj) 0.4 mg UNSCH PRN IV 05/26/17 13:30 (Grecia-Colace) 1 tab BID PO 05/26/17 21:00 05/26/17 22:28 (Milk Of Magnesia Liq) 30 ml Q12H PRN PO 05/26/17 13:30 (Senokot) 17.2 mg Q12H PRN PO 05/26/17 13:30 (Dulcolax Supp) 10 mg DAILY PRN RECTAL 05/26/17 13:30 (Lactulose Liq) 30 ml DAILY PRN PO 05/26/17 13:30 (D50w (Vial) Inj) 50 ml UNSCH PRN IV 05/26/17 16:00 (Glucagon Inj) 1 mg UNSCH PRN OTHER 05/26/17 16:00 (Tylenol) 325 mg Q4H PRN PO 05/26/17 18:45 (Percocet 5-325 Mg) 1 tab Q4H PRN PO 05/26/17 18:45 (Percocet 10-325 Mg) 1 tab Q4H PRN PO 05/26/17 18:45 05/27/17 02:26 (Morphine Inj) 2 mg Q30M PRN IV PUSH 05/26/17 18:45 (Aspirin Chew) 81 mg DAILY PO 05/27/17 09:00 (Plavix) 75 mg DAILY PO 05/27/17 09:00 (Ranexa) 500 mg Q12HR PO 05/26/17 21:00 05/26/17 22:28 (Coreg) 12.5 mg BID PO 05/26/17 21:00 05/26/17 22:28 (Neurontin) 200 mg DAILY PO 05/27/17 09:00 (Pravachol) 80 mg DAILY PO 05/27/17 09:00 Non-Formulary Medication 100 mg DAILY PO 05/27/17 09:00 Future Hold (Mag-Al Plus Susp Liq) 30 ml Q6HR PRN PO 05/26/17 20:00 (Xanax) 0.125 mg Q6H PRN PO 05/26/17 19:30 (Norvasc) 2.5 mg DAILY PO 05/27/17 09:00 (Pill Splitter) 1 ea UNSCH PRN OTHER 05/27/17 07:30 Vital Signs / I&O Vital Signs Date Time Temp Pulse Resp B/P Pulse Ox O2 Delivery O2 Flow Rate FiO2 05/27/17 06:00 68 05/27/17 05:00 58 05/27/17 04:00 63 05/27/17 03:00 97.5 71 16 133/77 97 05/27/17 03:00 75 05/27/17 02:00 64 05/27/17 01:00 65 05/27/17 00:00 75 05/26/17 23:00 97.5 75 16 111/66 94 05/26/17 23:00 86 05/26/17 22:00 83 05/26/17 21:30 97.5 79 16 150/94 98 05/26/17 18:39 99 Room Air 05/26/17 13:48 69 25 118/69 97 Room Air 05/26/17 10:16 70 23 118/71 125/71 05/26/17 10:08 71 23 97 Room Air 05/26/17 10:07 72 23 118/71 97 Room Air 05/26/17 10:07 97 Room Air 05/26/17 09:49 97.5 72 18 145/78 97 Room Air I/O 05/26/17 05/26/17 05/26/17 05/27/17 05/27/17 05/27/17 07:00 15:00 23:00 07:00 15:00 23:00 Intake Total 740 ml Output Total 875 ml Balance -135 ml Intake Oral 240 ml IV Total 500 ml Output Urine Total 875 ml Physical Exam GENERAL: Well developed, well nourished. No acute distress. HEENT: Jugular venous pressure is normal. CHEST: Lungs clear to auscultation bilaterally. Unlabored respiratory effort. CARDIAC: Regular rate and rhythm without S3, S4, or murmur. ABDOMEN: Soft, nontender, no hepatosplenomegaly. Bowel sounds present. EXTREMITIES: No clubbing, cyanosis, or edema. Laboratory Laboratory Tests Test 05/26/17 05/26/17 05/26/17 05/27/17 10:25 15:27 22:39 06:06 White Blood Count 10.2 TH/MM3 10.5 TH/MM3 Red Blood Count 5.26 MIL/MM3 4.83 MIL/MM3 Hemoglobin 16.1 GM/DL 14.4 GM/DL Hematocrit 45.9 % 42.4 % Mean Corpuscular Volume 87.2 FL 87.8 FL Mean Corpuscular Hemoglobin 30.6 PG 29.8 PG Mean Corpuscular Hemoglobin 35.0 % 33.9 % Concent Red Cell Distribution Width 12.6 % 12.5 % Platelet Count 247 TH/MM3 218 TH/MM3 Mean Platelet Volume 9.2 FL 8.5 FL Neutrophils (%) (Auto) 64.0 % 64.8 % Lymphocytes (%) (Auto) 26.9 % 26.8 % Monocytes (%) (Auto) 6.7 % 6.9 % Eosinophils (%) (Auto) 1.4 % 0.9 % Basophils (%) (Auto) 1.0 % 0.6 % Neutrophils # (Auto) 6.5 TH/MM3 6.8 TH/MM3 Lymphocytes # (Auto) 2.8 TH/MM3 2.8 TH/MM3 Monocytes # (Auto) 0.7 TH/MM3 0.7 TH/MM3 Eosinophils # (Auto) 0.1 TH/MM3 0.1 TH/MM3 Basophils # (Auto) 0.1 TH/MM3 0.1 TH/MM3 CBC Comment DIFF FINAL DIFF FINAL Differential Comment Prothrombin Time 10.7 SEC Prothromb Time International 1.0 RATIO Ratio Activated Partial 24.8 SEC Thromboplast Time Sodium Level 139 MEQ/L 137 MEQ/L Potassium Level 4.2 MEQ/L 3.5 MEQ/L Chloride Level 104 MEQ/L 102 MEQ/L Carbon Dioxide Level 28.1 MEQ/L 28.6 MEQ/L Anion Gap 7 MEQ/L 6 MEQ/L Blood Urea Nitrogen 14 MG/DL 14 MG/DL Creatinine 0.91 MG/DL 0.72 MG/DL Estimat Glomerular Filtration 85 ML/MIN 111 ML/MIN Rate Random Glucose 115 MG/DL 94 MG/DL Calcium Level 9.2 MG/DL 8.2 MG/DL Magnesium Level 2.3 MG/DL Total Creatine Kinase 54 U/L Troponin I 0.02 NG/ML 0.02 NG/ML 0.04 NG/ML Triglycerides Level 223 MG/DL 199 MG/DL Cholesterol Level 143 MG/DL 131 MG/DL LDL Cholesterol 69 MG/DL 64 MG/DL HDL Cholesterol 29.0 MG/DL 27.3 MG/DL Cholesterol/HDL Ratio 4.93 RATIO 4.79 RATIO Assessment and Plan Assessment and Plan Angina- s/p stent of Cx -on aspirin, plavix BB -ok for d/c CP- pt also has non-cardiac CP...CP in lab with open arteries, -follow up with PCP for out patient evaluation of possible anxiety or other non-cardiac etiology DM- hold metformin for 48 hours lipids- on statin dispo- ok for d/c -meds and activities discussed Aria Baker MD May 27, 2017 07:38
[2017-05-27] MEDS: DOCUSATE SODIUM 50 MG/SENNA 8.6 MG TAB PO SCH (08:36)
[2017-05-27] MEDS: CARVEDILOL 12.5 MG TAB PO SCH (08:37)
[2017-05-27] MEDS: SODIUM CHLORIDE 0.9% FLUSH 10 ML FLUSH IV FLUSH SCH (08:37)
[2017-05-27] MEDS ORDERED: ASPIRIN 81 MG CHEW TAB PO SCH (09:00)
[2017-05-27] MEDS: RANOLAZINE 500 MG EXTENDED RELEASE TAB PO SCH (09:00)
[2017-05-27] MEDS ORDERED: amLODIPine BESYLATE 5 MG TAB PO SCH (09:00)
[2017-05-27] MEDS ORDERED: ASPIRIN 81 MG CHEW TAB CHEW SCH (09:00)
[2017-05-27] MEDS ORDERED: GABAPENTIN 100 MG CAP PO SCH (09:00)
[2017-05-27] MEDS ORDERED: PRAVASTATIN SOD 80 MG TAB PO SCH (09:00)
[2017-05-27] MEDS ORDERED: CANAGLIFLOZIN 100 MG PO SCH (09:00)
[2017-05-27] MEDS ORDERED: CLOPIDOGREL 75 MG TAB PO SCH (09:00)
[2017-05-27] MEDS ORDERED: RANO500 PO (09:15)
[2017-05-27] MEDS ORDERED: PLAV75TA29 PO (09:15)
--- NOTE | 2017-05-27 09:18 | HHI.DS ---
Discharge Summary Admission Date May 26, 2017 at 13:23 Discharge Date: May 27, 2017 Admitting Diagnosis unstable angina, hypertension, hyperlipidemia (1) Hypertension ICD Code: I10 Diagnosis: Principal (2) Hyperlipidemia ICD Code: E78.5 Diagnosis: Principal (3) Unstable angina ICD Code: I20.0 Diagnosis: Principal (4) Disorder of coronary artery ICD Code: 447.9 Diagnosis: Principal (5) Benign hypertension ICD Code: 401.1 Diagnosis: Principal (6) Chest pain ICD Code: R07.9 Diagnosis: Principal Procedures Cardiac catheterization Brief History - From Admission Mr. Negrete is a 61-year-old male. She has a history of coronary artery disease with 2 myocardial infarctions and 3-4 stents in his past. For the past 2 weeks he's been having unstable angina with an increase in frequency and intensity. Episodes are brought on by activity. At his baseline he has angina intermittently but again the frequency and intensity have increased lately. He' s been treating this at home and seeking outpatient medical advice. He was unable to visit with his primary care physician last week so he saw Dr. Baker today and was recommended to come to the hospital. Plan is for cardiac catheter. No active chest pain when seen, resting in the ER. His first troponin is within normal limits. CBC/BMP: 05/27/17 0606 05/27/17 0606 Significant Findings Laboratory Tests Test 05/26/17 05/26/17 05/27/17 10:25 22:39 06:06 Estimat Glomerular Filtration 85 ML/MIN (>89) Rate Random Glucose 115 MG/DL (74-106) Triglycerides Level 223 MG/DL 199 MG/DL (42-150) (42-150) HDL Cholesterol 29.0 MG/DL 27.3 MG/DL (40.0-60.0) (40.0-60.0) Calcium Level 8.2 MG/DL (8.5-10.1) Hospital Course Mr. Negrete is a 61-year-old male with coronary artery disease. He came in secondary to unstable angina. No signs of UT. He had a cardiac catheter while here and had stent placement. He has been started on Plavix related to this and Ranexa for baseline angina symptoms. Interventions and improvement occurred faster than expected. He's feeling better this morning without symptoms. He has been cleared by cardiology. Medically stable for discharge home today. Pt Condition on Discharge: Stable Discharge Disposition: Discharge Home Discharge Time: <= 30 minutes Discharge Instructions DIET: Follow Instructions for: As Tolerated, No Restrictions Activities you can perform: Regular-No Restrictions Follow up Referrals: Cardiology - 2 Weeks PCP Follow-up - 2 Weeks New Medications: Clopidogrel (Plavix) 75 Mg Tab 75 MG PO DAILY Blood Clot Prevention #30 TAB Ranolazine ER 12 HR (Ranexa ER 12 HR) 500 Mg Tab 500 MG PO Q12HR Angina #60 TAB Continued Medications: Aspirin (Aspirin) 81 Mg Chew 81 MG CHEW DAILY Ref 0 TAB Canagliflozin (Invokana) 100 Mg Tab 100 MG PO DAILY Take before 1st meal of day. Blood Sugar Management #30 Ref 0 TAB Carvedilol (Coreg) 12.5 Mg Tab 12.5 MG PO BID #60 Ref 0 TAB Gabapentin (Gabapentin) 100 Mg Cap 200 MG PO DAILY #60 Ref 0 CAP Metformin (Metformin) 1,000 Mg Tab 1000 MG PO DAILY With a meal Blood Sugar Management #30 Ref 0 TAB Pravastatin (Pravastatin) 80 Mg Tab 80 MG PO DAILY Cholesterol Management #30 Ref 0 TAB Brandon Potter MD May 27, 2017 09:18
--- NOTE | 2017-05-27 10:06 | MB ---
cc: TRACY ROBLES MD DATE OF CONSULTATION 05/26/2017 REASON FOR CONSULTATION Angina HISTORY OF PRESENT ILLNESS Mr. Negrete is a 61-year-old man you does have a history of CAD with multiple prior stents, diabetes, hypertension, and hyperlipidemia. The patient reports that he has had multiple episodes of angina while working outside on his trunk. This, however, did occur during mid day with a heat index well over 100. He also reports episodes of angina in the morning after his coffee. He does give a history as well of exertional angina. PAST MEDICAL HISTORY Significant for: 1. CAD with a STEMI in 2007 of his diagonal. He subsequently underwent stenting of ramus and diagonal. 2. In 2012, he had a Resolute stent to his mid LAD. 3. In 2013, he had catheterization with FFR of his 50% circumflex lesion that with an FFR of 0.9. 4. His past medical history also includes diabetes, hypertension, and hyperlipidemia. SOCIAL HISTORY The patient is and he is a former smoker. FAMILY HISTORY Noncontributory REVIEW OF SYSTEMS Except as mentioned in the HPI all 12 systems are negative. ALLERGIES NO KNOWN DRUG ALLERGIES. MEDICATIONS Include: 1. Amlodipine 5 mg a day 2. Aspirin 81 mg a day 3. Atorvastatin 80 mg a day 4. Coreg 12.5 mg b.i.d. 5. Gabapentin 6. Invokana 7. Metformin 8. Nitrostat PHYSICAL EXAM VITAL SIGNS: Stable. GENERAL: In general, he is a well-appearing man in no apparent distress. NECK: His neck is free from JVD. LUNGS: The lungs are bilaterally clear to auscultation. CARDIOVASCULAR: He has a normal S1 and S2. I did not appreciate any murmurs, rubs or gallops. ABDOMEN: The abdomen is soft. EXTREMITIES: The extremities are free from edema. EKG shows normal sinus rhythm without acute ST changes. IMPRESSION Unstable angina - The patient has had progression of his symptoms. At this point, he wishes to proceed with cardiac catheterization. The risks, benefits and alternatives were discussed. The patient is agreeable despite a several percent risk for , MA, CVA and other. Tracy Robles M.D. [facility] /6:25 PM /9:54 AM
--- NOTE | 2017-05-27 11:18 | MA ---
cc: TRACY ROBLES MD DATE: 05/26/2017 INDICATION Unstable angina. PROCEDURE Left heart catheterization, selective coronary angiography, left ventriculography and stenting of the circumflex. DETAILS OF PROCEDURE The patient gave informed consent. He was prepped in the usual sterile fashion. A subcutaneous injection of lidocaine was made in the right inguinal area. Access was achieved in the right femoral artery and a 4-Togolese sheath was inserted. A JL-5 and 3DRC were utilized to engage the left and right coronary arteries. Angiograms were obtained in multiple views and projections. We completed the PCI described below and at the end of the case utilized to angled 4-Togolese pigtail catheter with a ___ injection for the LD. STENTING OF THE CIRCUMFLEX: The patient's sheath was upsized to a 6-Togolese in an over the wire manner. He received Angiomax with therapeutic ACT. A BMW wire was unable to make the turn into the circumflex as it kept prolapsing. A Whisper wire did the same. A 1.2 x 8 mm balloon provided additional support for the Whisper wire to pass down the circumflex into the OM. We then predilated with this balloon. A 2.75 x 14-mm Resolute drug-eluting stent was then deployed in the proximal circumflex to 15 atmospheres which is approximately 3.0 mm. There were excellent angiographic results. The patient was pain free throughout the procedure. After the procedure just after the final angiogram, the patient reported some chest pain. He did receive some Fentanyl. He rated the pain at 5 out of 10. The patient was Angio-Sealed. FINDINGS Left Main - this vessel has mild disease of about 10%. It gives rise to LAD, ramus and circumflex. LAD - this vessel has mild luminal irregularities. There is a patent LAD and diagonal stent. Ramus - this vessel has a widely patent stent and otherwise mild luminal irregularities. Circumflex - this vessel has a proximal 80 to perhaps 90% stenosis at the bifurcation of the circumflex proper and OM. RCA - this vessel has diffuse mild disease of 10% with a proximal 20% stenosis. It is the dominant vessel. Left ventriculogram - this shows EF of 60% and is without focal wall motion abnormalities. There is no gradient on pullback. INTERVENTION RESULTS Successful stenting of the circumflex with a 2.75 x 14-mm Resolute Integrity - NGOC with excellent angiographic results. CONCLUSION Severe disease of the circumflex. Successful stenting of the circumflex. Claudio Olivares/TLL /7:16 PM /10:57 AM
--- NOTE | 2017-05-27 15:02 | EKG ---
Date Performed: 05/27/2017 Time Performed: 06:16:28 PTAGE: 61 years EKG: Sinus rhythm Incomplete RBBB Septal T wave changes are nonspecific Borderline ECG PREVIOUS TRACING : 05/26/2017 19.40 DOCTOR: Martir Saldana Interpretating Date/Time 05/27/2017 14:57:12
--- NOTE | 2017-05-27 15:41 | EKG ---
Date Performed: 05/26/2017 Time Performed: 19:40:06 PTAGE: 61 years EKG: Sinus rhythm . Possible septal infarct - age undetermined Abnormal ECG PREVIOUS TRACING : 05/26/2017 16.25 DOCTOR: Martir Saldana Interpretating Date/Time 05/27/2017 15:38:03
--- NOTE | 2017-05-27 15:46 | EKG ---
Date Performed: 05/26/2017 Time Performed: 16:25:22 PTAGE: 61 years EKG: Sinus rhythm NORMAL ECG PREVIOUS TRACING : 05/26/2017 10.09 DOCTOR: Matrir Saldana Interpretating Date/Time 05/27/2017 15:41:45
== END 2017-05-27 10:24 | disposition home or self-care (01) | DRG 247 ==
LOC: NEPC 09:46 → NEDA 13:23 → HCIS 21:29
PROVIDERS: ADMIT Hospitalist; ATTEND Hospitalist
PROC: 4A023N7 Measurement of Cardiac Sampling and Pressure, Left Heart, Percutaneous Approach (ICD-10-PCS; 2017-05-26)
PROC: B2151ZZ Fluoroscopy of Left Heart using Low Osmolar Contrast (ICD-10-PCS; 2017-05-26)
PROC: B2111ZZ Fluoroscopy of Multiple Coronary Arteries using Low Osmolar Contrast (ICD-10-PCS; 2017-05-26)
PROC: 027034Z Dilation of Coronary Artery, One Artery with Drug-eluting Intraluminal Device, Percutaneous Approach (ICD-10-PCS; principal; 2017-05-26 16:15)
DX: I25.110 Atherosclerotic heart disease of native coronary artery with unstable angina pectoris (principal); I10 Essential (primary) hypertension; E78.5 Hyperlipidemia, unspecified; M19.049 Primary osteoarthritis, unspecified hand; I25.2 Old myocardial infarction; E11.9 Type 2 diabetes mellitus without complications; R51 Headache; F32.9 Major depressive disorder, single episode, unspecified; F41.9 Anxiety disorder, unspecified; Z79.84 Long term (current) use of oral hypoglycemic drugs; Z82.49 Family history of ischemic heart disease and other diseases of the circulatory system; Z86.73 Personal history of transient ischemic attack (TIA), and cerebral infarction without residual deficits; Z87.891 Personal history of nicotine dependence; Z95.5 Presence of coronary angioplasty implant and graft
CPT/HCPCS: 71010; 80048; 80061; 82550; 83735; 84484; 85002; 85025; 85610; 85730; 92928; 93005; 93458; C1725; C1760; C1769; C1874; C1887; C1893; G0269; J0583; J1644; J1650; J1815; J3010; J7030; Q9967